=== PATIENT | female | born 1995 | race Caucasian/White ===

== ENCOUNTER 2016-12-26 20:23 | Emergency (ER) | payer OTHER ==
[~2016-12-26] VITALS: Ht 149.9 cm; Wt 52.3 kg
[2016-12-26 20:26] VITALS: BP 124/84; PULSE 107; RESP 22; O2SAT 96
--- NOTE | 2016-12-26 20:34 | ED.REPORT ---
HPI-Trauma Minor / Fall Date of Service Dec 26, 2016 ED Provider: Michelle Mendenhall MD Pt is a healthy 21 y/o female presenting to the ED due to cat scratches which occurred prior to arrival. A dog ran up to her coffee stand earlier today without an clutch operator so she brought it home to bring it to a humane society tomorrow. Her cat apparently did not like the presence of the dog and once she picked her cat up it became irritated and superficially scratched her forehead causing a good deal of bleeding. Last TDAP unknown. Nursing Notes Stated Complaint: CAT SCRATCHES IN HEAD Chief Complaint: Laceration Nursing Notes Reviewed: Yes Allergies: Coded Allergies: No Known Allergies (Unverified , 12/26/16) General Time Seen by MD: 20:32 Chief Complaint Head injury Hx Obtained From: Patient Arrived By: Walk-in Onset Occurred: 1 - 4 hours ago Symptom Duration: Since onset Location: Head Quality: Painful Severity: Current: Mild Severity: Maximum: Mild Context: Immunizations Unknown Recent Healthcare: No recent doctor visit, No recent hospitalization Similar Sx Previous: No Past Medical History Past Medical History Denies Past Surgical History None reported Smoking History Unknown if Ever Smoker Ambulatory Status Independent Review of Systems Skin: Reports Rash (scratches) Neurologic: Reports: Headache (scalp) Complete sys rev & neg: except as marked. Physical Exam Initial Vital Signs Vital Signs (First) Date Time Temp Pulse Resp B/P Pulse Ox O2 Delivery O2 Flow Rate FiO2 12/26/16 20:26 37.6 107 22 124/84 96 Room Air Initial VS: Reviewed, Vital signs normal ENT: Mucous membranes moist, Conjunctiva normal, No scleral icterus Respiratory: No respiratory distress Cardiovascular: Intact distal pulses Abdomen / GI: Soft, Non-tender Extremities: Vascular intact, Neuro intact, No swelling, No tenderness Neurologic: Alert, Oriented, Nonfocal Psychiatric: Mood/affect normal, Behavior normal, Normal thought content General/Constitutional: Awake, Alert, No acute distress, Well appearing, Cooperative, Not toxic appearing Behavior: Positive: Tearful Head / Eyes: Normocephalic Partial thickness cuts to scalp, 1.5 cm and 2.5 cm. Small scratches over forehead, upper lip, and chin. None deep enough or full thickness which would require sutures. Skin: Color NL, Warm, Dry Small scratches over chest wall and L anterior thigh. None deep enough or full thickness which would require sutures. Re-Eval/Medical Decision Re-Evaluation/Progress : Time of Eval: 20:45 Re-Evaluation/Progress Note: Scratches cleaned and dressed in ED. F/U instructions and RTER warnings given. All questions addressed. Counseled Regarding: Diagnosis, Need for follow-up, When/why to return to ED Discharge & Departure Impression: Primary Impression: Cat scratch Disposition: Home Discharge Condition All VS Reviewed: Yes Condition: Improved Patient Instructions: Acute Wound Care (GEN) Additional Instructions: These scratches are not deep enough to require sutures. Keep them clean and dry and wash lightly with soap once each day. Return to the ER or go to your primary care doctor if you notice signs of infection: redness, swelling, discharge of pus, pain, fever, or for other concerning symptoms. Your TDAP vaccine was updated today. Referrals: Maureen Hurt MD (PCP) Scribe Attestation Portions of this note were transcribed by Ceferino Del Rio. I, Dr. Mendenhall personally performed the history, physical exam and medical decision-making; I reviewed and confirmed the accuracy of the information in the transcribed note. copies to: Maureen Hurt MD, Shawna L MD Dec 26, 2016 20:34 CEFERINO DEL RIO Dec 26, 2016 20:44
[2016-12-26] MEDS ORDERED: TdaP Vaccine 0.5 mL Inj IM ONE (20:45)
[2016-12-26 21:53] VITALS: BP 109/74; PULSE 74; RESP 20; O2SAT 100
== END 2016-12-26 21:54 | disposition home or self-care (01) ==
LOC: SED 20:23
DX: S00.01XA Abrasion of scalp, initial encounter (principal); S00.81XA Abrasion of other part of head, initial encounter; S00.511A Abrasion of lip, initial encounter; W55.03XA Scratched by cat, initial encounter; Y93.89 Activity, other specified; Y92.89 Other specified places as the place of occurrence of the external cause; Y99.8 Other external cause status; Z23 Encounter for immunization